=== PATIENT | male | born 1945 | race Caucasian/White ===

== ENCOUNTER 2016-10-29 13:09 | Observation (INO) ==
[2016-10-29 13:54] LABS: Basophils % 0.2 %; Eosinophils % 0.4 %; Hemoglobin 13.8 g/dL (12.9-16.9); Immature Granulocytes % 0.2 % (0-4); Lymphocytes # 0.6 K/mcL (0.6-4.6); Lymphocytes % 5.6 %; Mean Corpuscular HGB Conc 35.4 g/dL (31.6-35.5); Mean Corpuscular Hemoglobin 31.2 pg (28.0-33.3); Mean Corpuscular Volume 88.2 fL (83.0-100.0); Mean Platelet Volume 9.5 fL (9.4-12.4); Monocytes # 0.9 K/mcL (0.0-1.3); Monocytes % 8.4 %; Neutrophils # 8.6 K/mcL (1.6-8.9); Platelet Count 205 K/mcL (140-400); Red Blood Count 4.42 M/mcL (4.19-5.50); Red Cell Distribution Width 11.7 % (11.5-14.5); Segmented Neutrophils % 85.2 %
--- NOTE | 2016-10-29 13:55 | Emergency Department Note ---
Disposition Clinical Impression: Urinary tract infection Disposition: Admitted As Inpatient Condition: Fair Altered Mental Status HPI - General Chief Complaint: ED General Medical Stated Complaint: Back pain, lethargic, "Not normal self" Source: family Limitations: other Nursing Notes Reviewed: Yes Vital Signs Reviewed: Yes - History of Present Illness HPI Narrative: Patient is a 71-year-old child brought in by clinical care coordinator. Patient has been on antibiotic for 4 days for pneumonia and prescribed outpatient. Patient has also been on a new narcotic. data report analyst states patient is more lethargic. data report analyst requests possibility of admission for failed outpatient pneumonia. MD complaint: decreased responsiveness Onset (ago): day(s) - Related Data Home Medications Medication Instructions Recorded Confirmed Simvastatin [Zocor] 20 mg PO HS 07/15/15 10/24/16 Calcium Carbonate/Vitamin D3 1 each PO QAM 01/23/16 10/24/16 [Caltrate 600 + D Soft Chew Tab] Multivitamin [Multivitamins] 1 each PO QAM 01/23/16 10/24/16 Risedronate Sodium [Actonel] 35 mg PO QWEEK 01/23/16 10/24/16 Alendronate Sodium [Fosamax] 70 mg PO QWEEK 10/21/16 10/24/16 Tamsulosin HCl [Flomax] 0.4 mg PO DAILY 10/21/16 10/21/16 HYDROcodone/Acet 5/325 mg [[place] 1 tab PO Q6H PRN 10/29/16 10/29/16 5-325 mg] Phenazopyridine HCl 10/29/16 [Phenazopyridine HCl] Previous Rx's Medication Instructions Recorded Amoxicillin 875 mg PO BID #14 tablet 10/21/16 Azithromycin [Zithromax] 250 mg PO DAILY 5 Days 10/24/16 Allergies Allergy/AdvReac Type Severity Reaction Status Date / Time No Known Allergies Allergy Verified 10/21/16 15:44 All systems ED: reviewed and negative except as stated. Past Medical History - Past Medical History Medical history: Reports: arthritis, COPD, GERD, hyperlipidemia, hypertension, other Surgical history: Reports: no surgical history Psychiatric history: Reports: anxiety, depression - Social History Smoking Status: Never smoker Smokeless Tobacco Status: No Alcohol use: Reports: none Drug use: Reports: none Physical Exam - General Limitations: other General appearance: lethargic, other - Head Head exam: atraumatic - Eye Eye exam: Present: normal appearance - ENT ENT exam: normal exam - Neck Neck exam: Present: normal inspection - Chest Chest inspection: Present: normal inspection - Respiratory Respiratory exam: Present: normal lung sounds bilaterally - Cardiovascular Cardiovascular exam: Present: regular rate, normal rhythm - Abdominal Exam Abdominal exam: Present: soft, Non-Tender - Expanded Upper Extremity Exam Shoulder exam: Present: normal inspection - Expanded Lower Extremity Exam Hip/Pelvis exam: Present: normal inspection Gait: observed and normal - Neurological Exam Neurological exam: Present: alert - Psychiatric Psychiatric exam: Present: normal affect - Skin Skin exam: Present: warm Course Vital Signs Temperature 100.1 F H 10/29/16 13:19 Pulse Rate 96 10/29/16 13:19 Respiratory Rate 16 10/29/16 13:19 Blood Pressure 99/65 10/29/16 13:19 O2 Sat by Pulse Oximetry 97 10/29/16 13:19 Temperature 97.4 F L 10/29/16 20:16 Pulse Rate 92 10/29/16 20:16 Respiratory Rate 14 10/29/16 20:16 Blood Pressure 130/72 10/29/16 20:16 O2 Sat by Pulse Oximetry 93 L 10/29/16 20:16 Oxygen Delivery Oxygen Delivery Room Air Altered Mental Status - MDM Narrative Medical decision making narrative: Differential: Pneumonia versus sepsis - Lab Data Lab results reviewed: Yes I reviewed the patient's lab results. Result diagrams: 10/29/16 13:50 10/29/16 13:50 Lab Results 10/29/16 10/29/16 10/29/16 Range/Units 13:50 13:50 13:50 WBC 10.1 (4.3-11.1) K/mcL RBC 4.42 (4.19-5.50) M/mcL Hgb 13.8 (12.9-16.9) g/dL Hct 39.0 (37.5-50.1) % MCV 88.2 (83.0-100.0) fL MCH 31.2 (28.0-33.3) pg MCHC 35.4 (31.6-35.5) g/dL RDW 11.7 (11.5-14.5) % Plt Count 205 (140-400) K/mcL MPV 9.5 (9.4-12.4) fL Immature Gran % 0.2 (0-4) % Seg Neutrophils % 85.2 % Lymphocytes % 5.6 % Monocytes % 8.4 % Eosinophils % 0.4 % Basophils % 0.2 % Neutrophils # 8.6 (1.6-8.9) K/mcL Lymphocytes # 0.6 (0.6-4.6) K/mcL Monocytes # 0.9 (0.0-1.3) K/mcL Eosinophils # 0.0 (0.0-0.6) K/mcL Basophils # 0.0 (0.0-0.2) K/mcL PT 15.6 H (9.4-12.1) Seconds INR 1.4 Sodium 140 (136-145) mEq/L Potassium 4.2 (3.5-4.5) mEq/L Chloride 102 (98-109) mEq/L Carbon Dioxide 25 (19-29) mEq/L BUN 16 (8-26) mg/dL Creatinine 0.93 (0.72-1.25) mg/dL Est GFR ( Amer) > 60 (> 60) Est GFR (Non-Af Amer) > 60 (> 60) BUN/Creatinine Ratio 17 (6-26) Glucose 156 H (70-99) mg/dL Calculated Osmolality 294 (280-300) Calcium 9.0 (8.6-10.8) mg/dL Total Bilirubin 1.1 (0.2-1.2) mg/dL AST 21 (5-34) Units/L ALT 18 (0-55) Units/L Alkaline Phosphatase 69 (38-126) Units/L Troponin I (0-0.03) ng/mL Serum Total Protein 7.0 (6.0-8.3) g/dL Albumin 3.4 L (3.5-5.0) g/dL Globulin 3.6 H (2.4-3.5) g/dL Albumin/Globulin Ratio 0.9 L (1.1-2.2) Urine Color (Yellow) Urine Clarity (Clear) Urine pH (5.0-8.0) pH Units Ur Specific [place] (1.010-1.025) Urine Protein (Neg-Trace) mg/dL Urine Glucose (UA) (Normal) mg/dL Urine Ketones (Negative) mg/dL Urine Blood (Negative) Urine Nitrite (Negative) Urine Bilirubin (Negative) Urine Urobilinogen (Normal) mg/dL Ur Leukocyte Esterase (Negative) Urine Microscopic RBC (0-3) per hpf Urine Microscopic WBC (0-3) per hpf Ur Squamous Epith Cells (None-Few) per lpf Hyaline Casts (None-Few) per lpf Granular Casts (None Seen) per lpf Urine Mucus (Few) Ur Culture Indicated? (NO) 10/29/16 10/29/16 Range/Units 13:50 14:33 WBC (4.3-11.1) K/mcL RBC (4.19-5.50) M/mcL Hgb (12.9-16.9) g/dL Hct (37.5-50.1) % MCV (83.0-100.0) fL MCH (28.0-33.3) pg MCHC (31.6-35.5) g/dL RDW (11.5-14.5) % Plt Count (140-400) K/mcL MPV (9.4-12.4) fL Immature Gran % (0-4) % Seg Neutrophils % % Lymphocytes % % Monocytes % % Eosinophils % % Basophils % % Neutrophils # (1.6-8.9) K/mcL Lymphocytes # (0.6-4.6) K/mcL Monocytes # (0.0-1.3) K/mcL Eosinophils # (0.0-0.6) K/mcL Basophils # (0.0-0.2) K/mcL PT (9.4-12.1) Seconds INR Sodium (136-145) mEq/L Potassium (3.5-4.5) mEq/L Chloride (98-109) mEq/L Carbon Dioxide (19-29) mEq/L BUN (8-26) mg/dL Creatinine (0.72-1.25) mg/dL Est GFR ( Amer) (> 60) Est GFR (Non-Af Amer) (> 60) BUN/Creatinine Ratio (6-26) Glucose (70-99) mg/dL Calculated Osmolality (280-300) Calcium (8.6-10.8) mg/dL Total Bilirubin (0.2-1.2) mg/dL AST (5-34) Units/L ALT (0-55) Units/L Alkaline Phosphatase (38-126) Units/L Troponin I 0.00 (0-0.03) ng/mL Serum Total Protein (6.0-8.3) g/dL Albumin (3.5-5.0) g/dL Globulin (2.4-3.5) g/dL Albumin/Globulin Ratio (1.1-2.2) Urine Color [place] A (Yellow) Urine Clarity Clear (Clear) Urine pH 5.0 (5.0-8.0) pH Units Ur Specific [place] <= 1.005 L (1.010-1.025) Urine Protein >=300 H (Neg-Trace) mg/dL Urine Glucose (UA) 500 H (Normal) mg/dL Urine Ketones 80 H (Negative) mg/dL Urine Blood Negative (Negative) Urine Nitrite Positive A (Negative) Urine Bilirubin Large H (Negative) Urine Urobilinogen >=8.0 H (Normal) mg/dL Ur Leukocyte Esterase Large H (Negative) Urine Microscopic RBC 0-3 (0-3) per hpf Urine Microscopic WBC 3-5 H (0-3) per hpf Ur Squamous Epith Cells Few (None-Few) per lpf Hyaline Casts Few (None-Few) per lpf Granular Casts Moderate H (None Seen) per lpf Urine Mucus Many H (Few) Ur Culture Indicated? YES A (NO) - Radiology Data Radiology results reviewed: Yes I reviewed the patient's radiology results. ITS Impressions Chest X-Ray 10/29/16 13:39 IMPRESSION: No evidence of acute disease. D/ / Joshua High MD / Joshua High MD Interpreting Provider: Joshua High MD - EKG Data EKG attestation: Yes I reviewed and interpreted this EKG. EKG shows normal: sinus rhythm Rate: normal Rhythm: NSR Interpretation: no acute changes, normal EKG TPA Checklist - LKW: 3-4.5 hrs Add. Contraindications Patient/family understanding: The patient/family members have been counseled and understood the risk, benefit , and alternatives of treatment.
[2016-10-29 14:00] LABS: INR 1.4; Prothrombin Time 15.6 Seconds (9.4-12.1)
[2016-10-29 14:10] LABS: Alanine Aminotransferase 18 Units/L (0-55); Albumin 3.4 g/dL (3.5-5.0); Albumin/Globulin Ratio 0.9 (1.1-2.2); Alkaline Phosphatase 69 Units/L (38-126); Aspartate Amino Transferase 21 Units/L (5-34); BUN/Creatinine Ratio 17 (6-26); Bilirubin,Total 1.1 mg/dL (0.2-1.2); Blood Urea Nitrogen 16 mg/dL (8-26); Carbon Dioxide 25 mEq/L (19-29); Chloride 102 mEq/L (98-109); Globulin 3.6 g/dL (2.4-3.5); Glucose 156 mg/dL (70-99); Osmolality,Calculated 294 (280-300); Potassium 4.2 mEq/L (3.5-4.5); Sodium 140 mEq/L (136-145); eGFR For African Americans > 60 (> 60); eGFR For Non-African Americans > 60 (> 60)
[2016-10-29 14:39] LABS: Bilirubin,Urine Large (Negative); Blood,Urine Negative (Negative); Clarity,Urine Clear (Clear); Glucose,Urine (UA) 500 mg/dL (Normal); Ketones,Urine 80 mg/dL (Negative); Leukocyte Esterase,Urine Large (Negative); Nitrite,Urine Positive (Negative); Protein,Urine >=300 mg/dL (Neg-Trace); Specific Gravity,Urine <= 1.005 (1.010-1.025); Urobilinogen,Urine >=8.0 mg/dL (Normal)
[2016-10-29 14:41] LABS: Color,Urine Amber (Yellow)
[2016-10-29] MEDS ORDERED: CefTRIAXone 1,000 MG in D5% in Water (Mini-Bag+) 100 ML IVPB ONE (14:47)
[2016-10-29 14:56] LABS: Granular Casts,Urine Moderate per lpf (None Seen); Hyaline Casts,Urine Few per lpf (None-Few); Mucus,Urine Many (Few); RBC,Urine 0-3 per hpf (0-3); Squamous Epithelial Cell,Urine Few per lpf (None-Few)
[2016-10-29] MEDS ORDERED: 0.9 % Sodium Chloride 1,000 ML IVC SCH ×3 (15:15→19:13)
[2016-10-29] MEDS ORDERED: NON-FORMULARY MEDICATION 1 EACH EACH (Alendronate Sodium [Fosamax] 70 MG) PO SCH (16:13)
[2016-10-29] MEDS ORDERED: *HR* HYDROcodone/Acet 5/325 mg TABLET PO PRN (19:13)
--- NOTE | 2016-10-29 19:19 | Internal Med History&Physical ---
Date of Encounter: 10/29/16 Time of Encounter: 18:30 Assessment and Plan (1) Back pain Current visit: Yes Status: Acute We will order CT of thoracic and LS spine Qualifiers: Back pain location: thoracic back pain Chronicity: acute Back pain laterality: bilateral Qualified Code(s): M54.6 - Pain in thoracic spine (2) Glucosuria Current visit: Yes Status: Acute We will check hemoglobin A1c in a.m. (3) Neutrophilia Current visit: Yes Status: Acute Recheck CBC in a.m. He has been started on Rocephin and Zithromax for possible pneumonia (4) BPH (benign prostatic hyperplasia) Current visit: Yes Status: Chronic Continue Flomax Qualifiers: Prostatic enlargement morphology: unspecified morphology Qualified Code(s) : N40.0 - Benign prostatic hyperplasia without lower urinary tract symptoms Internal Medicine - H&P: HPI Chief complaint: Back pain, lethargy Admitted From: Home Plans for Post Hospital Care: Home History of present illness: Mr. Hampton is a 71 year old male who was sent to emergency from the senior care after he complained of severe back pain and seemed to be more lethargic and less active than usual. He was evaluated in emergency room and found to have normal WBC but left shift present. There was glucosuria and evidence of UTI. He was admitted to [facility] floor for ongoing care needs. He has MRDD and could not give a reliable history. I spoke with a caregiver at his senior care to obtain further history. The caregiver reports there is been no injury or trauma recently to his back. He did sustain a fall from bleachers about 2 years ago with skull and back fractures sustained. He was life flighted to [facility] and treated. He has not complained of recent pain until 5 days ago when he started complaining of mid and lower back pain. He was evaluated in the emergency room October [address] of abdomen and pelvis showing bibasilar bronchiectasis and bronchial wall thickening with nodular areas of consolidation but no acute abnormalities seen otherwise. There was no bony abnormalities noted in the visualized spine area. Past Med Surg Social Fam HX - Past Medical History Medical history: arthritis, COPD, GERD, hyperlipidemia, hypertension, other Psychiatric history: anxiety, depression - Past Surgical History Surgical History: no surgical history - Social History Smoking Status: Never smoker Smokeless Tobacco Status: No Alcohol use: none Drug use: none Internal Medicine - H&P: Meds Simvastatin [Zocor] 20 mg PO HS 07/15/15 [History] Calcium Carbonate/Vitamin D3 [Caltrate 600 + D Soft Chew Tab] 1 each PO QAM [History] Multivitamin [Multivitamins] 1 each PO QAM 01/23/16 [History] Risedronate Sodium [Actonel] 35 mg PO QWEEK 01/23/16 [History] Alendronate Sodium [Fosamax] 70 mg PO QWEEK 10/21/16 [History] Amoxicillin 875 mg PO BID #14 tablet 10/21/16 [Rx] Tamsulosin HCl [Flomax] 0.4 mg PO DAILY 10/21/16 [History] Azithromycin [Zithromax] 250 mg PO DAILY 5 Days 10/24/16 [Rx] HYDROcodone/Acet 5/325 mg [[place] 5-325 mg] 1 tab PO Q6H PRN 10/29/16 [History] Phenazopyridine HCl [Phenazopyridine HCl] 10/29/16 [History] Allergies No Known Allergies Allergy (Verified 10/21/16 15:44) All Systems PM: A 10-system review of systems was performed and is negative for pertinent findings except as documented above in the HPI. Review of systems: Gen.: His weight is decreased [place] 10 pounds in the past week because of decreased intake from lethargy Cardiovascular: There is no known [place] hypertension heart failure angina DVT or pulmonary embolus Respiratory: He is a lifelong nonsmoker and has no known chronic lung disease GI: He has no known disorders liver gallbladder or exocrine pancreas : He has BPH. He has no other kidney or bladder disorders Neurologic: He has MRDD but has had no large distribution strokes or seizures Endocrine: He has history of hyperkalemia but no known diabetes or thyroid disease Hematology/oncology: He has no known blood disorders cancers or anemia Psychiatric: He has no anxiety depression or other mental health issues. [place] skeletal: He had skull and back fracture as mentioned previously. He had left arm surgery in the past - Constitutional Vitals: Temp Pulse Resp BP Pulse Ox 98.1 F 98 19 99/66 92 L 10/29/16 16:50 10/29/16 16:50 10/29/16 17:08 10/29/16 17:08 10/29/16 16:50 Exam: Gen.: He is a well-developed well nourished male lying in bed who complains of severe back pain when moved HEENT: Head is atraumatic and normocephalic. Eyes: EOMI. There is no scleral icterus. Mouth: Mucosa is moist. Neck: Supple and nontender. There is no thyromegaly or adenopathy noted. Heart: Regular without murmurs gallops or ectopics Lungs: No wheezes or crackles are heard. Abdomen: Soft and nontender. He has a small umbilical hernia. Extremities: There is no cyanosis edema or clubbing noted. Dorsalis pedis and posttibial pulses are 1-2 over 2 bilaterally. Neurologic: Mental status: He is talkative and a fair to poor historian. Cranial nerves: Smile is symmetric. Forehead wrinkles bilaterally. Tongue protrudes midline. EOMI. Motor: There is no pronator drift. Cerebellar: Finger to nose is intact bilaterally. Skin: Warm and dry Internal Med - H&P Results - Labs CBC & Chem 7: 10/29/16 13:50 10/29/16 13:50
[2016-10-29] MEDS ORDERED: Mag Hydrox/Al Hydrox/Simeth 30 ML UDC PO PRN (20:13)
[2016-10-30 06:08] LABS: Basophils % 0.3 %; Eosinophils # 0.1 K/mcL (0.0-0.6); Eosinophils % 0.8 %; Hemoglobin 13.6 g/dL (12.9-16.9); Immature Granulocytes % 0.3 % (0-4); Lymphocytes # 0.9 K/mcL (0.6-4.6); Lymphocytes % 11.9 %; Mean Corpuscular HGB Conc 34.9 g/dL (31.6-35.5); Mean Corpuscular Hemoglobin 31.2 pg (28.0-33.3); Mean Corpuscular Volume 89.4 fL (83.0-100.0); Mean Platelet Volume 9.6 fL (9.4-12.4); Monocytes # 0.5 K/mcL (0.0-1.3); Monocytes % 7.3 %; Neutrophils # 5.9 K/mcL (1.6-8.9); Platelet Count 217 K/mcL (140-400); Red Blood Count 4.36 M/mcL (4.19-5.50); Red Cell Distribution Width 11.8 % (11.5-14.5); Segmented Neutrophils % 79.4 %
[2016-10-30 06:46] VITALS: BP 134/74
[2016-10-30 09:00] LABS: Hemoglobin A1C 5.4 %
[2016-10-30] MEDS ORDERED: Multivit/Ca/Min/Fe/FA 1 TAB TABLET PO SCH (09:00)
[2016-10-30] MEDS ORDERED: Cholecalciferol (D-3) 1,000 UNIT TABLET PO SCH (09:00)
[2016-10-30] MEDS ORDERED: Azithromycin 250 MG TABLET PO SCH (09:00)
--- NOTE | 2016-10-30 09:39 | Discharge Summary ---
Date of Encounter: 10/30/16 Time of Encounter: 09:25 - Discharge Diagnosis (1) Back pain Priority: Primary Status: Acute Qualifiers: Back pain location: thoracic back pain Chronicity: acute Back pain laterality: bilateral Qualified Code(s): M54.6 - Pain in thoracic spine (2) Neutrophilia Priority: Secondary Status: Acute (3) BPH (benign prostatic hyperplasia) Priority: Secondary Status: Chronic Qualifiers: Prostatic enlargement morphology: unspecified morphology Qualified Code(s) : N40.0 - Benign prostatic hyperplasia without lower urinary tract symptoms - Discharge Medications Prescriptions: Lactobacillus [Culturelle] 1 each PO BID #14 cap.sprink MetroNIDAZOLE [Flagyl] 500 mg PO TID #9 tablet Tramadol HCl [Ultram] 50 mg PO QID #28 tab Home Medications: Simvastatin [Zocor] 20 mg PO HS 07/15/15 [History] Calcium Carbonate/Vitamin D3 [Caltrate 600 + D Soft Chew Tab] 1 each PO QAM [History] Multivitamin [Multivitamins] 1 each PO QAM 01/23/16 [History] Alendronate Sodium [Fosamax] 70 mg PO QWEEK 10/21/16 [History] Amoxicillin 875 mg PO BID #14 tablet 10/21/16 [Rx] Tamsulosin HCl [Flomax] 0.4 mg PO DAILY 10/21/16 [History] Azithromycin [Zithromax] 250 mg PO DAILY 5 Days 10/24/16 [Rx] Phenazopyridine HCl 10/29/16 [History] HYDROcodone/Acet 5/325 mg [[place] 5-325 mg] 1 tab PO Q4H PRN #0 10/30/16 [Rx] Lactobacillus [Culturelle] 1 each PO BID #14 cap.sprink 10/30/16 [Rx] MetroNIDAZOLE [Flagyl] 500 mg PO TID #9 tablet 10/30/16 [Rx] Tramadol HCl [Ultram] 50 mg PO QID #28 tab 10/30/16 [Rx] Allergies/Adverse Reactions: Allergies No Known Allergies Allergy (Verified 10/21/16 15:44) Procedures/tests Complete & Pending: Procedures Performed prior 72 hours Category Date Time Status CT lumbar spine wo con [CT] Routine Cat Scan 10/29/16 19:[address] thoracic spine wo con [CT] Routine Cat Scan 10/29/16 19:09 Completed Date of admission: 10/29/16 15:00 Primary care physician: Kyleigh Palacio - Patient Status Disposition: Home, Self-Care Condition: Fair Overall status at discharge: patient is progressing back to baseline - Discharge Instructions Follow Up With: Kyleigh Palacio MD [Primary Care Provider] - 1 week - Diet and Activity Activity: resume usual activities as tolerated Diet: advance to your usual diet Hospital course: Mr. Hampton is a 71 year old male who was sent to emergency from the nursing home after he complained of severe back pain and seemed to be more lethargic and less active than usual. He was evaluated in emergency room and found to have normal WBC but left shift present. There was glucosuria and evidence of UTI. He was admitted to [facility] floor for ongoing care needs. Initial orders were written by the emergency room physician. I saw him the evening of October 29 and performed a history and physical. A CT of thoracic and LS spine was ordered. The LS spine CT showed a vertebral compression fracture at L1 with 30-50% vertebral body height loss with some retropulsion. The thoracic spine CT showed chronic T-3 compression deformity with greater than 50% vertebral body height loss. There was mild chronic compression deformities of T5 and T6 with less than 20% vertebral body height loss. There were anterior wedge compression deformities of T7 and T8 with approximately 30% vertebral body height loss anteriorly. He will be started on scheduled Ultram and his [place] be changed to a q4h prn basis. Vitamin D level is pending at time of this dictation. He will continue with his calcium/vitamin D supplement and Fosamax. Home med list also reported Actonel but this will be discontinued to avoid duplication with Fosamax. He developed diarrhea. Stool was sent for C. difficile but results are pending at time of this dictation. I will start him empirically on lactobacillus and give him Flagyl 500 mg by mouth every 8 hours. I gave him a 3 day supply of Flagyl and the nursing home staff/Dr. Palacio can follow-up on the C. difficile report to see if additional treatment is needed. He will continue with the Augmentin and Zithromax upon discharge that he had been previously prescribed for pneumonia. WBC was normal at 7.4K on October 30 with 79.4% segs. Hemoglobin A1c returned satisfactory at 5.4%. On October 30 I felt he was stable for discharge back to the nursing home. I explained to him he likely had back pain from the compression fractures but that it should lessen over time. He will follow Dr. Palacio at the nursing home. - Time Spent with Patient Total time spent providing and/or coordinating discharge services: - Constitutional Vitals: Temp Pulse Resp BP Pulse Ox 98.1 F 72 18 134/74 96 10/30/16 06:42 10/30/16 06:42 10/30/16 06:42 10/30/16 06:42 10/30/16 06:42
--- NOTE | 2016-10-30 15:04 | Electrocardiograph Report ---
[address] [place], [place] [address] Test Date: 2016-10-29 Pat Name: Isidoro Hampton Department: [id number] Room: [facility] Gender: M Intake Manager: : 1945 Requested By: [place] Order Number: [id number] Reading MD: Oxana Lane Measurements Intervals [place] Rate: 98 P: 73 UT: 120 QRS: 43 QRSD: 76 T: 91 QT: 320 QTc: 376 Interpretive Statements SINUS RHYTHM POSSIBLE LEFT ATRIAL ENLARGEMENT ST DEVIATION AND MODERATE T-WAVE ABNORMALITY, CONSIDER LATERAL ISCHEMIA Electronically Signed On 10-30-2016 15:03:[address]
== END 2016-10-30 14:30 | disposition home or self-care (01) ==
LOC: INPPIK 13:09 → EMEROOPIK 13:09 → INPPIK 16:13
PROVIDERS: ADMIT Internal Medicine; ATTEND Internal Medicine

== ENCOUNTER 2016-11-30 17:58 | Inpatient (IN) ==
--- NOTE | 2016-11-30 18:04 | Emergency Department Note ---
Disposition Clinical Impression: Cardiac arrest Aspiration into airway Qualifiers: Encounter type: initial encounter Qualified Code(s): T17.908A - Unspecified foreign body in respiratory tract, part unspecified causing other injury, initial encounter Altered mental status Qualifiers: Altered mental status type: coma Coma depth: [place] coma 3-8 Coma timing: in the field (EMT or ambulance) Qualified Code(s): R40.2431 - [place] coma scale score 3-8, in the field [EMT or ambulance] Disposition: Admitted As Inpatient Condition: Critical CPR HPI - General Chief Complaint: ED Cardiac Arrest/CPR Stated Complaint: Cardiac arrest Time Seen by Provider: 11/30/16 18:02 Source: EMS Mode of arrival: EMS Limitations: altered mental status, physical limitation Nursing Notes Reviewed: Yes Vital Signs Reviewed: Yes - History of Present Illness HPI Narrative: The patient was eating a hot dog when he has started to choke. A Heimlich maneuver was unsuccessful by caretakers. He reportedly stopped breathing within a couple minutes of ems arrival. When they arrived the squad reports that he was sitting slumped over and unresponsive between somebody's knees. They were able to remove about 3 inches of hot dog, intubate and initiate CPR. They did have return of spontaneous pulse but no respirations. He has been transported in with ventilation by Ambu bag. His recent history of systems spell of some tremors and some recent malaise or weight loss. Evaluations of this event unrevealing at the senior living. Patient does have MR DD and has been determined to be a DNR CC status. Pt Complaint: other (Patient started gasping while eating.) Onset (ago): Just EDGE INKER Timing confirmed by: caregiver Place: other (detention) Bystander CPR Performed: No Downtime Before ACLS Arrival (mins): 3 Initial Findings in the Field: unresponsive, no respirations, no pulse ROSC in the Field: Yes Associated Injuries: No Treatments Prior to Arrival: intubation - Related Data Home Medications Medication Instructions Recorded Confirmed Simvastatin [Zocor] 20 mg PO HS 07/15/15 11/24/16 Calcium Carbonate/Vitamin D3 1 each PO QAM 01/23/16 11/24/16 [Caltrate 600 + D Soft Chew Tab] Multivitamin [Multivitamins] 1 each PO QAM 01/23/16 11/24/16 Alendronate Sodium [Fosamax] 70 mg PO QWEEK 01/25/17 02/28/17 Tamsulosin HCl [Flomax] 0.4 mg PO DAILY 10/21/16 11/24/16 Previous Rx's Medication Instructions Recorded Acetaminophen w/Cod 300-30 mg 1 each PO Q6HR #12 tablet 11/24/16 [Tylenol w/Codeine #3] Magnesium Citrate 296 ml PO NOW #1 solution 11/24/16 Allergies Allergy/AdvReac Type Severity Reaction Status Date / Time No Known Allergies Allergy Verified 11/15/16 12:10 All systems ED: reviewed and negative except as stated. CPR PMH - Past Medical History Medical history: Reports: arthritis, COPD, GERD, hyperlipidemia, hypertension, other (DD) Male Surgical history: Reports: no surgical history Psychiatric history: Reports: anxiety, depression - Social History Smoking Status: Never smoker Alcohol use: Reports: none Drug use: Reports: none Physical Exam - General Limitations: altered mental status, physical limitation General appearance: other (Responsive) - Head Head exam: atraumatic, normocephalic, normal inspection - Eye Eye exam: Present: other (Pupils are 3-4 mm. He does not have a blink reflex.) - ENT ENT exam: other (Endotracheal tube is present. Patient has no gag or responses. ) - Neck Neck exam: Present: normal inspection, full ROM, trachea midline, other ( Patient has a visible carotid pulse.) - Chest Chest inspection: Present: normal inspection, symmetric chest wall rise - Respiratory Respiratory exam: Present: normal lung sounds bilaterally, other (Breath sounds clear with Ambu bag ventilation) - Cardiovascular Cardiovascular exam: Present: tachycardia, irregular rhythm. Absent: JVD - Abdominal Exam Abdominal exam: Present: soft. Absent: distention, mass, bruit - Extremities Exam Extremities exam: Present: normal inspection, full ROM. Absent: tenderness, pedal edema - Neurological Exam Neurological exam: Present: other (Unresponsive). Absent: alert, oriented X3 - Psychiatric Psychiatric exam: Present: other (Unresponsive) - Skin Skin exam: Present: warm, dry, intact, normal color. Absent: diaphoresis, pallor Course Course Narrative: 1800: Care discussed with Dr Palacio. The guardian of the patient is not available. Patient will need to be maintained on the ventilator until we can further clarify with family and guardian. 1820: I spoke with the patient's guardian/brother Ayan Hampton who stated that he would like to speak to his sister and then call back for the decision with regard to the patient's continued intubation and ventilation. 1899: Ayan Hampton has called back to say that he and his sister are both in accord with the patient being removed from the ventilator. I understand that he has not demonstrated respiratory effort at this could lead to his immediate demise. They also understand he may have some brainstem function to cause him to have agonal or poor respiration. He would like us to keep him up-to-date with regard to the status of his brother. 1904: I have contacted the hospital plan administrator environmental engineering manager who agrees that this should be discussed with risk and legal they will contact the hospital insurance attorney environmental engineering manager and have them contact me. 1914: I spoken with the hospital insurance attorney, Malinda Eastman, who agrees that with both family members wanting to honor the existing DNR CC status and to extubate the patient that we can go ahead and work towards extubation. I have contacted to respiratory therapy the first put the patient on a T piece and discontinue ventilation by the ventilator. 1934: Patient has been placed on a T percent humidified oxygen. He evidenced periods of apnea with agonal breaths and has, as of 7:45 PM, settled into a periodic breathing pattern. 1950: Patient is maintaining a good pulse, respirations and blood pressure on the T piece. We have gone ahead and fully extubated the patient. I recontacted the patient's brother at up to the patient's condition and the plan for admission to the hospital. I have spoken with Dr. To and have received verbal orders for his care. I have also we contacted to Dr. Palacio to update her on her patient's condition. The patient remains in critical medical condition with plan for continuation of comfort measures inpatient. Vital Signs Temperature 98.1 F 11/30/16 18:05 Pulse Rate 114 11/30/16 18:05 Respiratory Rate 14 11/30/16 18:05 Blood Pressure 44/26 11/30/16 18:05 O2 Sat by Pulse Oximetry 97 11/30/16 18:05 Temperature 98.1 F 11/30/16 18:09 Pulse Rate 72 11/30/16 20:11 Respiratory Rate 33 11/30/16 20:19 Blood Pressure 139/79 11/30/16 20:19 O2 Sat by Pulse Oximetry 99 11/30/16 20:11 Oxygen Delivery Oxygen Delivery Nasal Cannula Cardiac Arrest/CPR - Differential Diagnosis Likely: acute respiratory failure, cardiac arrest - Medical Records Medical records reviewed: Yes I reviewed the patient's medical records. - Lab Data Lab results reviewed: Yes I reviewed the patient's lab results. Result diagrams: 11/30/16 18:25 11/30/16 18:25 Lab Results 11/30/16 11/30/16 Range/Units 18:25 18:25 WBC 7.4 D (4.3-11.1) K/mcL RBC 3.58 L (4.19-5.50) M/mcL Hgb 11.4 L (12.9-16.9) g/dL Hct 34.2 L (37.5-50.1) % MCV 95.5 (83.0-100.0) fL MCH 31.8 (28.0-33.3) pg MCHC 33.3 (31.6-35.5) g/dL RDW 13.1 (11.5-14.5) % Plt Count 173 (140-400) K/mcL MPV 9.6 (9.4-12.4) fL Immature Gran % 0.9 (0-4) % Seg Neutrophils % 42.3 % Lymphocytes % 41.0 % Monocytes % 9.3 % Eosinophils % 6.0 % Basophils % 0.5 % Neutrophils # 3.1 (1.6-8.9) K/mcL Lymphocytes # 3.0 (0.6-4.6) K/mcL Monocytes # 0.7 (0.0-1.3) K/mcL Eosinophils # 0.4 (0.0-0.6) K/mcL Basophils # 0.0 (0.0-0.2) K/mcL Sodium 140 (136-145) mEq/L Potassium 4.6 H (3.5-4.5) mEq/L Chloride 105 (98-109) mEq/L Carbon Dioxide 16 L (19-29) mEq/L BUN 19 (8-26) mg/dL Creatinine 1.01 (0.72-1.25) mg/dL Est GFR ( Amer) > 60 (> 60) Est GFR (Non-Af Amer) > 60 (> 60) BUN/Creatinine Ratio 19 (6-26) Glucose 142 H (70-99) mg/dL Calculated Osmolality 295 (280-300) Calcium 9.1 (8.6-10.8) mg/dL - Radiology Data Radiology results reviewed: Yes I reviewed the patient's radiology results. Critical Care Time Critical Care Time: Yes Total Critical Care Time: 90 Attestation: As this patient did present with signs and symptoms of potential life- threatening illness requiring my urgent intervention, total critical care time in this patient's care has been 90 minutes, not withstanding separately reportable procedures.
[2016-11-30] MEDS ORDERED: 0.9 % Sodium Chloride 1,000 ML IVC ONE (18:12)
[2016-11-30 18:31] LABS: Basophils % 0.5 %; Eosinophils # 0.4 K/mcL (0.0-0.6); Hematocrit 34.2 % (37.5-50.1); Hemoglobin 11.4 g/dL (12.9-16.9); Immature Granulocytes % 0.9 % (0-4); Mean Corpuscular HGB Conc 33.3 g/dL (31.6-35.5); Mean Corpuscular Hemoglobin 31.8 pg (28.0-33.3); Mean Corpuscular Volume 95.5 fL (83.0-100.0); Mean Platelet Volume 9.6 fL (9.4-12.4); Monocytes # 0.7 K/mcL (0.0-1.3); Monocytes % 9.3 %; Neutrophils # 3.1 K/mcL (1.6-8.9); Platelet Count 173 K/mcL (140-400); Red Blood Count 3.58 M/mcL (4.19-5.50); Red Cell Distribution Width 13.1 % (11.5-14.5); Segmented Neutrophils % 42.3 %
[2016-11-30 18:46] LABS: BUN/Creatinine Ratio 19 (6-26); Blood Urea Nitrogen 19 mg/dL (8-26); Calcium 9.1 mg/dL (8.6-10.8); Carbon Dioxide 16 mEq/L (19-29); Chloride 105 mEq/L (98-109); Glucose 142 mg/dL (70-99); Osmolality,Calculated 295 (280-300); Potassium 4.6 mEq/L (3.5-4.5); Sodium 140 mEq/L (136-145); eGFR For African Americans > 60 (> 60); eGFR For Non-African Americans > 60 (> 60)
[2016-11-30] MEDS ORDERED: Ondansetron 4 MG/2 ML VIAL IVP PRN (21:18)
[2016-11-30] MEDS ORDERED: Naloxone 0.4 MG/ML INJ IVP PRN (21:18)
[2016-11-30] MEDS: *HR* LORazepam 2 MG/ML VIAL IVP PRN (22:21)
[2016-11-30] MEDS: 0.9 % Sodium Chloride 1,000 ML IVC SCH (22:22)
[2016-11-30] MEDS: Lacri-Lube 3.5 GM TUBE BOTH EYES SCH (22:22)
[2016-12-01] MEDS: *HR* LORazepam 2 MG/ML VIAL IVP PRN ×3 (01:22→08:06)
[2016-12-01] MEDS: 0.9 % Sodium Chloride 1,000 ML IVC SCH (06:23)
[2016-12-01] MEDS: Lacri-Lube 3.5 GM TUBE BOTH EYES SCH ×2 (08:21→21:46)
[2016-12-01] MEDS: Acetaminophen 650 MG RECTAL SUPP RC PRN ×2 (09:10→18:18)
[2016-12-01] MEDS: *HR* Morphine 2 MG/ML SYRINGE IVP PRN ×2 (09:10→13:49)
--- NOTE | 2016-12-01 10:49 | Internal Med History&Physical ---
Date of Encounter: 12/01/16 Time of Encounter: 10:20 Assessment and Plan (1) Cardiopulmonary arrest Current visit: Yes Status: Acute I explained to the family that physical exam showed significant likelihood of hypoxic encephalopathy. They did not wish further aggressive treatment be done and wished BUNCH TRIMMER MOLD including withdrawal of IV fluids etc. No further labs or studies will be done. Internal Medicine - H&P: HPI Chief complaint: Aspiration Admitted From: Home History of present illness: Mr. Hampton is a 71 year old male who choked while eating a hot dog at the [facility]. A Heimlich maneuver was reportedly attempted but was unsuccessful. He became unconscious so the squad was called and EMS personnel reportedly removed 3 inches of hotdog and intubated him and initiated CPR. He had return of spontaneous pulse but no spontaneous respirations. He was brought to emergency room where it was learned he had advance directives declaring him to be a DNR CC. He was extubated and placed on [facility] floor for ongoing care needs. He is not responsive to voice or light touch and could not give any additional history. He was hospitalized at [facility] October 2016 with complaints of back pain which was felt to be due to a compression fracture. Past Med Surg Social Fam HX - Past Medical History Medical history: arthritis, COPD, GERD, hyperlipidemia, hypertension, osteoporosis, other Psychiatric history: anxiety, depression - Past Surgical History Surgical History: herniorrhaphy - Social History Smoking Status: Never smoker Smokeless Tobacco Status: No Alcohol use: none Drug use: none Internal Medicine - H&P: Meds Simvastatin [Zocor] 20 mg PO HS 07/15/15 [History] Calcium Carbonate/Vitamin D3 [Caltrate 600 + D Soft Chew Tab] 1 each PO QAM [History] Multivitamin [Multivitamins] 1 each PO QAM 01/23/16 [History] Alendronate Sodium [Fosamax] 70 mg PO QWEEK 10/21/16 [History] Tamsulosin HCl [Flomax] 0.4 mg PO DAILY 10/21/16 [History] Acetaminophen w/Cod 300-30 mg [Tylenol w/Codeine #3] 1 each PO Q6HR #12 tablet 11/24/16 [Rx] Magnesium Citrate 296 ml PO NOW #1 solution 11/24/16 [Rx] Allergies No Known Allergies Allergy (Verified 11/15/16 12:10) All Systems PM: A 10-system review of systems was performed and is negative for pertinent findings except as documented above in the HPI. Review of systems: Review of systems from the October 2016 history and physical were reviewed and revised as below. Gen.: His weight is increased from 61.235 kg last admission to 65.227 kg today Cardiovascular: There is no known CO hypertension heart failure angina DVT or pulmonary embolus Respiratory: He is a lifelong nonsmoker and has no known chronic lung disease GI: He has no known disorders liver gallbladder or exocrine pancreas : He has BPH. He has no other kidney or bladder disorders Neurologic: He has MRDD but has had no large distribution strokes or seizures Endocrine: He has history of hyperlipidemia but no known diabetes or thyroid disease Hematology/oncology: He has no known blood disorders cancers or anemia Psychiatric: He has no anxiety depression or other mental health issues. [place] skeletal: The LS spine CT showed done last admission showed a vertebral compression fracture at L1 with 30-50% vertebral body height loss with some retropulsion. The thoracic spine CT showed chronic T-3 compression deformity with greater than 50% vertebral body height loss. There was mild chronic compression deformities of T5 and T6 with less than 20% vertebral body height loss. There were anterior wedge compression deformities of T7 and T8 with approximately 30% vertebral body height loss anteriorly.He had a fall from bleachers about 2 years ago with skull and back fractures sustained. He had left arm surgery in the past - Constitutional Vitals: Temp Pulse Resp BP Pulse Ox 99.6 F 124 33 153/80 96 12/01/16 10:31 12/01/16 10:31 12/01/16 10:31 12/01/16 10:31 12/01/16 10:31 Exam: Gen.: He is a well nourished, lying in bed who is unresponsive to voice and touch. HEENT: Head is atraumatic and normal cephalic. Eyes: There is no scleral icterus. His gaze is conjugate. Mouth: He is mouth breathing. Mucosa is dry Neck: Supple and nontender. There is no thyromegaly or adenopathy noted. Heart: Regular and tachycardic with rate approximately 124/m, no murmurs or gallops are heard Lungs: No wheezes or crackles are heard. Abdomen: No guarding is noted. He has palpable masses in the left and right suprapubic area bilaterally. Extremities: There is no cyanosis edema or clubbing noted. Dorsalis pedis and posterior tibial pulses are 1-2 over 2 bilaterally. Neurologic: Mental status: He does not respond to voice, light touch, or withdraw to painful stimuli. Cranial nerves: He has no spontaneous facial movements. He has inappropriate doll's eyes maneuver on [id number] head turning. Motor: He has some arm tone on range of motion. He does not move spontaneously. Does not withdraw to painful stimuli of the fingernails or toenails. No further neurologic testing is not attempted. Skin: Moist and clammy Internal Med - H&P Results - Labs CBC & Chem 7: 11/30/16 18:25 11/30/16 18:25 - VTE Documentation of Mechanical Device: Graduated compression elastic hosiery
[2016-12-01] MEDS ORDERED: Atropine 1% Opth Drops 100 DROP/5 ML BOTTLE SL PRN (11:08)
[2016-12-02 04:11] VITALS: BP 136/83
--- NOTE | 2016-12-02 09:50 | Internal Med Progress Note ---
Date of Encounter: 12/02/16 Time of Encounter: 09:40 - Assessment and plan (1) Cardiopulmonary arrest Current Visit: Yes Status: Acute Assessment and plan: December 02. 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 Anticipate survival less than 48 hours - Subjective Interval history: December 02. He is lying in bed and unresponsive to voice and light touch - Constitutional Vitals: Temp Pulse Resp BP Pulse Ox 98.7 F 121 50 136/83 96 12/02/16 04:08 12/02/16 04:08 12/02/16 09:00 12/02/16 04:08 12/02/16 04:08 Exam: Doll's eyes remain inappropriate. His feet are cool to touch. There is no extremity edema. I reviewed his vital signs. Internal Medicine: Result - Labs CBC & Chem 7: 11/30/16 18:25 11/30/16 18:25 - VTE Documentation of Mechanical Device: Graduated compression elastic hosiery Consult Discharge Plan - Plan Referrals: Kyleigh Palacio MD [Primary Care Provider] -
[2016-12-02] MEDS: Lacri-Lube 3.5 GM TUBE BOTH EYES SCH (10:42)
[2016-12-02] MEDS: *HR* Morphine 2 MG/ML SYRINGE IVP PRN (10:58)
[2016-12-02] MEDS: Acetaminophen 650 MG RECTAL SUPP RC PRN (10:59)
--- NOTE | 2016-12-02 18:41 | Discharge Summary ---
Date of Encounter: 12/02/16 Time of Encounter: 18:35 - Discharge Diagnosis (1) Cardiopulmonary arrest Priority: Primary Status: Acute (2) Aspiration into airway Priority: Secondary Status: Acute Qualifiers: Encounter type: initial encounter Qualified Code(s): T17.908A - Unspecified foreign body in respiratory tract, part unspecified causing other injury, initial encounter - Discharge Medications Home Medications: Simvastatin [Zocor] 20 mg PO HS 07/15/15 [History] Calcium Carbonate/Vitamin D3 [Caltrate 600 + D Soft Chew Tab] 1 each PO QAM [History] Multivitamin [Multivitamins] 1 each PO QAM 01/23/16 [History] Alendronate Sodium [Fosamax] 70 mg PO QWEEK 10/21/16 [History] Tamsulosin HCl [Flomax] 0.4 mg PO DAILY 10/21/16 [History] Acetaminophen w/Cod 300-30 mg [Tylenol w/Codeine #3] 1 each PO Q6HR #12 tablet 11/24/16 [Rx] Magnesium Citrate 296 ml PO NOW #1 solution 11/24/16 [Rx] Allergies/Adverse Reactions: Allergies No Known Allergies Allergy (Verified 11/15/16 12:10) Date of admission: 11/30/16 22:00 Primary care physician: Kyleigh Palacio - Patient Status Disposition: Condition: Critical - Discharge Instructions Follow Up With: Kyleigh Palacio MD [Primary Care Provider] - Hospital course: Mr. Hampton is a 71 year old male who choked while eating a hot dog at the retirement. A Heimlich maneuver was reportedly attempted but was unsuccessful. He became unconscious so the squad was called and EMS personnel reportedly removed 3 inches of hotdog and intubated him and initiated CPR. He had return of spontaneous pulse but no spontaneous respirations. He was brought to emergency room where it was learned he had advance directives declaring him to be a DNR CC. He was extubated and placed on [facility] floor for ongoing care needs. Initial orders were written by the emergency room physician. I saw him on December 01 and performed the history and physical. I felt he likely had significant hypoxic encephalopathy. I discussed this likelihood with the family and they did not wish further aggressive treatment to be done. 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 He remained unconscious and spiked occasional fevers. I felt he likely had aspiration pneumonia. At 1353 on December 02 he was found without pulse or respirations and was pronounced . No resuscitative efforts were done as per advanced directives. His body was released to the home. - Time Spent with Patient Total time spent providing and/or coordinating discharge services: - Constitutional Vitals: Temp Pulse Resp BP Pulse Ox 98.7 F 121 50 136/83 96 12/02/16 04:08 12/02/16 04:08 12/02/16 09:00 12/02/16 04:08 12/02/16 04:08 - VTE Documentation of Mechanical Device: Graduated compression elastic hosiery
== END 2016-12-02 12:53 | disposition expired | DRG 205 ==
LOC: INPPIK 17:58 → EMEROOPIK 17:58 → INPPIK 20:22
PROVIDERS: ADMIT Internal Medicine; ATTEND Internal Medicine